=== PATIENT | female | born 1985 | race Caucasian/White ===

== ENCOUNTER 2017-08-17 05:15 | Inpatient (IN) | payer BC ==
[~2017-08-17] VITALS: Ht 160 cm; Wt 112.9 kg
[2017-08-17] VITALS (8 sets, daily range): BP systolic 98–116; BP diastolic 55–67
[~2017-08-17 05:15] MED LIST: DOCUSATE SODIU100 MG PO; ENDOCET 5-3251 EACH PO; IBUPROFEN800 MG PO; PRENATAL TABLE1 EAC3 PO; TYLENOL EXTRA500 MG PO
[2017-08-17 06:16] LABS: HEMATOCRIT 35.5 % (36.0-46.0); MCH 30.3 PG (29.0-34.0); MCHC 33.2 G/DL (30.0-36.0); MCV 91.3 FL (83-99); MEAN PLAT.VOLUME 9.9 uM^3 (9.5-12.4); PLATELET COUNT 168 K/uL (156-360); RBC DIS.WIDTH-CV 14.1 % (11.8-14.6); RBC DIS.WIDTH-SD 46.1 % (39-53); RED BLOOD COUNT 3.89 M/uL (3.80-5.20); WHITE BLOOD COUNT 8.4 K/uL (4.1-10.2)
[2017-08-18 02:32] VITALS: BP 99/55
[2017-08-18 06:00] LABS: EOSINOPHIL (%) 0.9 % (0-5); EOSINOPHIL COUNT 0.1 K/uL (0-0.3); HEMATOCRIT 31.5 % (36.0-46.0); IMMATURE GRANULOCYTE (%) 1.5 % (0.0-0.7); IMMATURE GRANULOCYTE COUNT 0.2 K/uL; INSTRUMENT ABS NEUTROPHIL CT 7.3 K/uL; MCH 32.1 PG (29.0-34.0); MCHC 34.6 G/DL (30.0-36.0); MCV 92.6 FL (83-99); MEAN PLAT.VOLUME 10.5 uM^3 (9.5-12.4); MONOCYTE (%) 7.8 % (3-12); MONOCYTE COUNT 0.8 K/uL (0-0.8); NEUTROPHIL (%) 70.3 % (45-76); NEUTROPHIL COUNT 7.3 K/uL (1.8-6.4); PLATELET COUNT 145 K/uL (156-360); RBC DIS.WIDTH-CV 14.2 % (11.8-14.6); RBC DIS.WIDTH-SD 47.2 % (39-53); WHITE BLOOD COUNT 10.3 K/uL (4.1-10.2)
[2017-08-18 07:25] VITALS: BP 101/58
[2017-08-18 11:30] VITALS: BP 106/56
[2017-08-18 15:10] VITALS: BP 120/75
[2017-08-18 19:00] VITALS: BP 100/56
[2017-08-18 23:00] VITALS: BP 101/57
[2017-08-19 02:58] VITALS: BP 115/63
[2017-08-19 08:18] VITALS: BP 114/61
[2017-08-19 15:00] VITALS: BP 101/57
[2017-08-20 06:59] VITALS: BP 109/66
[2017-08-20] MEDS ORDERED: ENDOCET 5-3251 EACH PO (15:20)
[2017-08-20] MEDS ORDERED: IBUPROFEN800 MG PO (15:20)
[2017-08-20] MEDS ORDERED: DOCUSATE SODIU100 MG PO (15:20)
[2017-08-20 16:46] VITALS: BP 126/69
== END 2017-08-20 18:00 | disposition home or self-care (01) | DRG 765 ==
LOC: 2WEST 05:15 → 2SOUTH 08:47 → 2WEST 08-20 18:00
PROVIDERS: Obstetrics & Gynecology
DX: O34.211 Maternal care for low transverse scar from previous cesarean delivery (principal); O99.214 Obesity complicating childbirth; E66.01 Morbid (severe) obesity due to excess calories; Z68.41 Body mass index [BMI] 40.0-44.9, adult; Z37.0 Single live birth; Z30.2 Encounter for sterilization; Z3A.39 39 weeks gestation of pregnancy
CPT/HCPCS: 85025; 85027; 86850; 86900; 86901; 88302; 90686; J1580; J1885; J2274; J2405; J3010; J7050; J7120

== ENCOUNTER 2018-02-17 14:10 | Observation (INO) | payer BC ==
[~2018-02-17] VITALS: Ht 160 cm; Wt 115.0 kg
[2018-02-17 14:33] LABS: HEMATOCRIT 41.4 % (36.0-46.0); HEMOGLOBIN 14.1 G/DL (11.9-15.5); MCH 29.4 PG (29.0-34.0); MCHC 34.1 G/DL (30.0-36.0); MCV 86.3 FL (83-99); PLATELET COUNT 215 K/uL (156-360); RBC DIS.WIDTH-CV 12.6 % (11.8-14.6); RBC DIS.WIDTH-SD 39.2 % (39-53); WHITE BLOOD COUNT 10.6 K/uL (4.1-10.2)
[2018-02-17 14:44] LABS: CHLORIDE 103 mEq/L (99-109); POTASSIUM 4.2 mEq/L (3.7-5.4); SODIUM 139 mEq/L (136-147)
[2018-02-17 14:46] LABS: GLUCOSE 73 mg/dL (70-99)
[2018-02-17 14:50] LABS: CREATININE 0.7 mg/dL (0.6-1.3); GFR ESTIMATE (CALCULATED) > 59 mL/min/
[2018-02-17 14:51] LABS: UREA NITROGEN (BUN) 9 mg/dL (9-23)
[2018-02-17 15:07] LABS: ALBUMIN 4.3 g/dL (3.2-4.8)
[2018-02-17 15:10] LABS: TOTAL PROTEIN 7.4 g/dL (6.4-8.3)
[2018-02-17 15:12] LABS: TOTAL BILIRUBIN 0.8 mg/dL (0.0-1.0)
[2018-02-17 15:13] LABS: ALKALINE PHOSPHATASE 148 IU/L (3-129)
[2018-02-17 15:15] LABS: AST (GOT) 18 IU/L (2-34); DIRECT BILIRUBIN 0.3 mg/dL (0.0-0.3)
[2018-02-17 15:16] LABS: ALT (GPT) 20 IU/L (3-49)
[2018-02-17 15:27] LABS: LIPASE 34 U/L (1.0-51.0)
[2018-02-17 15:32] LABS: QUANTITATIVE HCG < 4.0 MIU/ML
[2018-02-17 17:34] LABS: APPEARANCE SL.HAZY ((CLEAR)); BILIRUBIN NEGATIVE; BLOOD NEGATIVE; COLOR YELLOW ((YELLOW)); GLUCOSE (STRIP) NEGATIVE; KETONES NEGATIVE; LEUKOCYTES NEGATIVE; NITRITE NEGATIVE; PROTEIN (STRIP) NEGATIVE; SPECIFIC GRAVITY 1.015 (1.000-1.030); UROBILINOGEN 0.2 MG/DL (0.2-1.0)
[2018-02-17 17:36] LABS: BACTERIA RARE /HPF; EPITHELIAL CELLS 1+ /HPF; MUCUS TRACE /LPF; RED BLOOD CELLS 0-5 /HPF (0-5); UCUL ADDED? NO; WHITE BLOOD CELLS 0-5 /HPF (0-5)
[2018-02-17 18:23] LABS: HEMATOCRIT 37.1 % (36.0-46.0); HEMOGLOBIN 12.6 G/DL (11.9-15.5); MCH 29.4 PG (29.0-34.0); MCV 86.5 FL (83-99); PLATELET COUNT 197 K/uL (156-360); RBC DIS.WIDTH-CV 12.6 % (11.8-14.6); RBC DIS.WIDTH-SD 39.3 % (39-53); RED BLOOD COUNT 4.29 M/uL (3.80-5.20); WHITE BLOOD COUNT 10.1 K/uL (4.1-10.2)
[2018-02-17] MEDS ORDERED: TYLENOL EXTRA500 MG PO (18:27)
[2018-02-17 22:57] VITALS: BP 117/66
[2018-02-18 04:43] VITALS: BP 92/52
[2018-02-18 05:54] LABS: HEMATOCRIT 36.2 % (36.0-46.0); MCH 28.8 PG (29.0-34.0); MCHC 33.1 G/DL (30.0-36.0); MCV 86.8 FL (83-99); PLATELET COUNT 193 K/uL (156-360); RBC DIS.WIDTH-CV 12.5 % (11.8-14.6); RBC DIS.WIDTH-SD 39.7 % (39-53); RED BLOOD COUNT 4.17 M/uL (3.80-5.20); WHITE BLOOD COUNT 8.6 K/uL (4.1-10.2)
[2018-02-18 06:20] LABS: CHLORIDE 109 MEQ/L (99-109); CREATININE 0.6 MG/DL (0.6-1.3); GFR ESTIMATE (CALCULATED) > 59 mL/min/; GLUCOSE 86 mg/dL (70-99); POTASSIUM 3.9 MEQ/L (3.7-5.4); SODIUM 140 MEQ/L (136-147); UREA NITROGEN (BUN) 7 mg/dL (9-23)
[2018-02-18 07:31] VITALS: BP 99/54
[2018-02-18] MEDS ORDERED: PROTONIX40 MG PO (10:22)
[2018-02-18] MEDS ORDERED: ANUSOL HC,ANUCO25 MG PR (10:24)
[2018-02-18] MEDS ORDERED: COLACE100 MG PO (10:24)
[2018-02-18 12:17] VITALS: BP 132/70
== END 2018-02-18 14:54 | disposition home or self-care (01) ==
LOC: EME 14:10 → EDOF 20:41 → 5WEST 20:41 → EDOF 20:41 → ENRESERV 20:46 → 5WEST 22:46
PROVIDERS: Hospitalist; Physician Assistant
DX: K92.2 Gastrointestinal hemorrhage, unspecified (principal); G43.109 Migraine with aura, not intractable, without status migrainosus; G47.33 Obstructive sleep apnea (adult) (pediatric); I95.9 Hypotension, unspecified; R10.32 Left lower quadrant pain; M54.5 Low back pain; Z88.0 Allergy status to penicillin
CPT/HCPCS: 70450; 74177; 76856; 80048; 80076; 81003; 83690; 84702; 85027; 86850; 86900; 86901; 99281; 99285; C9113; G0378; J1885; J2405; J3010; J7030

== ENCOUNTER 2018-05-23 00:25 | Emergency (ER) | payer BC ==
[~2018-05-23] VITALS: Ht 160 cm; Wt 110.4 kg
[~2018-05-23 00:25] MED LIST changes: +ANUSOL HC,ANUCO25 MG PR; +COLACE100 MG PO; +PROTONIX40 MG PO
[2018-05-23] MEDS ORDERED: KEFLEX500 MG PO (05:28)
[2018-05-23 05:46] VITALS: BP 132/83
== END 2018-05-23 05:47 | disposition home or self-care (01) ==
LOC: EME 00:25
DX: S91.202A Unspecified open wound of left great toe with damage to nail, initial encounter (principal); W22.8XXA Striking against or struck by other objects, initial encounter; Z87.442 Personal history of urinary calculi; Z88.0 Allergy status to penicillin
CPT/HCPCS: 73630; 99281; 99284; S0020